=== PATIENT | female | born 1985 | race Caucasian/White ===

== ENCOUNTER 2018-04-22 20:25 | Emergency (ER) | payer SELFPAY ==
[~2018-04-22] VITALS: Ht 170.2 cm; Wt 122.5 kg
[2018-04-23] MEDS ORDERED: ALBUTEROL SULF 2.5 MG/0.5ML(0.5%) NEB SOLN NEB ONE (04:45)
[2018-04-23] MEDS ORDERED: IPRATROPIUM BROM 0.5 MG/2.5ML INH SOL NEB ONE (04:45)
[2018-04-23 05:51] VITALS: BP 142/86
== END 2018-04-23 05:48 | disposition home or self-care (01) ==
LOC: ER 20:30
DX: R06.02 Shortness of breath (principal)
CPT/HCPCS: 71046; 94640; 99284; J7611; J7644

== ENCOUNTER 2022-01-08 05:20 | Emergency (ER) | payer OTHER ==
[~2022-01-08] VITALS: Ht 170.2 cm; Wt 104.3 kg
[2022-01-08] MEDS ORDERED: NAP500T PO (10:42)
[2022-01-08 11:01] VITALS: BP 138/78
== END 2022-01-08 11:08 | disposition home or self-care (01) ==
LOC: ER 05:20
DX: S40.011A Contusion of right shoulder, initial encounter (principal); R55 Syncope and collapse; Z79.899 Other long term (current) drug therapy; W18.39XA Other fall on same level, initial encounter; Y93.89 Activity, other specified; Y92.89 Other specified places as the place of occurrence of the external cause; Y99.8 Other external cause status
CPT/HCPCS: 73030